=== PATIENT | female | born 1955 | race Caucasian/White ===

== ENCOUNTER 2018-09-19 08:12 | Day surgery (SDC) | payer OTHER ==
[~2018-09-19] VITALS: Ht 157.5 cm; Wt 64.2 kg
[2018-09-19 09:19] VITALS: Ht 157.5 cm; Wt 64.2 kg
[2018-09-19] MEDS ORDERED: lisinopril PO (09:33)
[2018-09-19] MEDS ORDERED: januvia PO (09:33)
[2018-09-19] MEDS ORDERED: LIDOCAINE 4% SOLUTION 50 ML BTL ONE (09:54)
[2018-09-19] MEDS ORDERED: INSULIN REGULAR, HUMAN 100 UNIT/1 ML 3ML VIAL SC ONE (10:00)
[2018-09-19 10:01] VITALS: BP 142/65; PULSE 75; RESP 21
[2018-09-19] MEDS ORDERED: FENTAnyl 50 MCG/ML VIAL ONE (10:58)
[2018-09-19] MEDS ORDERED: MIDAZOLAM 1 MG/ML 2 ML INJ ONE (10:58)
[2018-09-19 11:20] VITALS: BP 127/60; PULSE 67; RESP 18
== END 2018-09-19 14:32 | disposition home or self-care (01) ==
LOC: GIL 08:12
PROVIDERS: ATTEND Internal Medicine Gastroenterology
DX: Z12.11 Encounter for screening for malignant neoplasm of colon (principal); K64.4 Residual hemorrhoidal skin tags; K64.8 Other hemorrhoids; K20.9 Esophagitis, unspecified; K29.50 Unspecified chronic gastritis without bleeding; E11.9 Type 2 diabetes mellitus without complications; I10 Essential (primary) hypertension
CPT/HCPCS: 43239; 45380; 82962; 88305; 88312; J1815; J2250; J3010; Z7610